=== PATIENT | male | born 1975 | race Native Hawaiian/Other Pacific Islander ===

== ENCOUNTER 2023-04-21 07:50 | Outpatient (CLI) | payer BC | END 2023-04-21 19:03 | disposition home or self-care (01) | LOC: NM 07:50 | PROVIDERS: ATTEND Nurse Practitioner Family | DX: R10.821 Right upper quadrant rebound abdominal tenderness (principal); Z87.19 Personal history of other diseases of the digestive system; R10.9 Unspecified abdominal pain | CPT/HCPCS: A9537 ==